=== PATIENT | male | born 1965 | race Caucasian/White ===

== ENCOUNTER 2016-10-14 12:30 | Emergency (ER) | payer OTHER ==
[2016-10-14] MEDS ORDERED: Ibuprofen TAB* 600 MG PO ONE (13:03)
--- NOTE | 2016-10-14 13:52 | ED ---
Lower Extremity - HPI Summary HPI Summary: Patient presents with right ankle pain s/p mechanical fall this afternoon. He states he tripped over his pant leg and fell twisting his right ankle and landing on his left side injuring his left ribs. Denies SOB or chest pain. He is unable to ambulate. Pain is located over the deltoid, lateral and medial ankle. No swelling or ecchymosis noted over the ankle. Denies other injuries. Denies hitting head or LOC. PMHx includes HTN and low testosterone for which he takes Clomid, but denies other health history. Pulses +2 intact bilaterally. Denies numbness or tingling in lower extremity. Denies knee pain. - History of Current Complaint Chief Complaint: EDExtremityLower Stated Complaint: RIGHT ANKLE INJURY Time Seen by Provider: 10/14/16 12:52 Hx Obtained From: Patient Mechanism Of Injury: Twisted Onset of Pain: Immediate Onset/Duration: Hours Severity Initially: Moderate Severity Currently: Moderate Pain Intensity: 7 Pain Scale Used: 0-10 Numeric Timing: Constant Location: Is Discrete @ - right ankle and left rib Character Of Pain: Sharp, Aching Associated Signs And Symptoms: Positive: Negative Aggravating Factor(s): Standing, Ambulation, Weight Bearing Alleviating Factor(s): Rest, Ice Able to Bear Weight: No - Risk Factors Gout Risk Factors: Male DVT Risk Factors: Negative Septic Arthritis Risk Factor: Negative - Allergies/Home Medications Allergies/Adverse Reactions: Allergies Allergy/AdvReac Type Severity Reaction Status Date / Time Penicillins [PCN] Allergy Anaphylatic Verified 10/14/16 12:31 Shock Shellfish Allergy Allergy Anaphylatic Verified 10/14/16 12:31 Shock PMH/Surg Hx/FS Hx/Imm Hx Previously Healthy: Yes - Immunization History Hx Pertussis Vaccination: Yes Immunizations Up to Date: Unable to Obtain/Confirm Infectious Disease History: No Infectious Disease History: Denies: Traveled Outside the [place] in Last 30 Days - Social History Occupation: Employed Full-time Lives: With Family Alcohol Use: None Hx Substance Use: No Hx Tobacco Use: No Smoking Status (MU): Never Smoked Tobacco Review of Systems Constitutional: Negative Eyes: Negative Cardiovascular: Negative Positive: Other - left sided rib pain Respiratory: Negative Positive: no symptoms reported, see HPI Positive: Arthralgia Neurological: Negative Psychological: Normal All Other Systems Reviewed And Are Negative: Yes Physical Exam Triage Information Reviewed: Yes Vital Signs On Initial Exam: Initial Vitals Temp Pulse Resp BP Pulse Ox 98.8 F 80 18 164/99 100 10/14/16 12:32 10/14/16 12:32 10/14/16 12:32 10/14/16 12:32 10/14/16 12:32 Vital Signs Reviewed: Yes Appearance: Positive: Well-Appearing, No Pain Distress, Well-Nourished Skin: Positive: Warm, Skin Color Reflects Adequate Perfusion Eyes: Positive: Normal, DHEERAJ Neck: Positive: Supple, Nontender, No Lymphadenopathy Respiratory/Lung Sounds: Positive: Clear to Auscultation, Breath Sounds Present Cardiovascular: Positive: RRR, Pulses are Symmetrical in both Upper and Lower Extremities Musculoskeletal: Positive: Normal, Strength/ROM Intact Neurological: Positive: Sensory/Motor Intact, Alert, Oriented to Person Place, Time, Speech Normal Psychiatric: Positive: Normal AVPU Assessment: Alert - Andrew Coma Scale Best Eye Response: 4 - Spontaneous Best Motor Response: 6 - Obeys Commands Best Verbal Response: 5 - Oriented Diagnostics - Vital Signs Vital Signs Temp Pulse Resp BP Pulse Ox 10/14/16 12:32 98.8 F 80 18 164/99 100 - Laboratory Lab Statement: Any lab studies that have been ordered have been reviewed, and results considered in the medical decision making process. Lower Extremity Course/Dx - Course Course Of Treatment: Patient presents s/p fall with right ankle injury and left rib pain. Based on [place] [facility] Rules, patient sent to imaging. Xray negative for fracture or other acute findings. Pain over deltoid, ATFL ligaments with no ecchymosis or swelling identified. Medial and lateral distal lower extremity without pain and x-rays show no widening of the ankle joint regarding low suspicion for Maisonneuve fx. Ankle was tanner wrapped to patient comfort to allow for immobilization for this period of time. Crutches given. Patient given orthopedic follow up in 5-7 days. Encouraged Ibuprofen 600mg three times daily with meals for pain. Return precautions given. Educated patient regarding ankle injuries and healing time and the possibility of further evaluation and imaging as orthopedist sees fit. Pulses +2 bilaterally. No findings on ankle xray or chest xray. Note given for work. Patient OK with discharge and will follow up with DR. Schmidt as needed. - Diagnoses Differential Diagnosis/HQI/PQRI: Positive: Contusion, Fracture (Closed), Sprain , Strain Provider Diagnoses: Ankle sprain Discharge - Discharge Plan Condition: Stable Disposition: HOME Patient Education Materials: Ankle Sprain (ED) Forms: *Work Release Referrals: Terese Arndt MD [Primary Care Provider] - Mi Schmidt MD [Medical Doctor] - Additional Instructions: Crutches for ambulation given. Ibuprofen 600mg three times daily with meals for pain. Follow up with orthopedic physician in 5-7 days. If numbness, tingling, decreased sensation, increased pain, temperature changes or pallor noted in toes, come back to ER immediately. Protect the area. For your comfort level, do not bear weight, pull or push until you can injury is somewhat healed. This may involve the need for immobilization or crutches for a period of time. Rest the involved area, but not too long. You may need to be off your injury for some time to allow for healing, however excessive immobilization of joints can lead to stiffness and delay healing time. Early mobilization is encouraged if it is pain-free. Ice. Not directly on the skin. Cover with a towel. Apply ice no more than 30 minutes at a time Compression: You may use and keep an tanner wrap bandage over the injury to decrease swelling. Again, this should be limited and be taken off periodically to encourage early range of motion and mobilization. Elevate: Try to elevate the injured area above the heart whenever possible. If symptoms do not improve, please follow up with Dr. Schmidt.
--- NOTE | 2016-10-14 14:02 | RAD ---
HISTORY: Fall, right ankle pain COMPARISONS: None VIEWS: 3, Frontal, lateral, and oblique views of the right ankle FINDINGS: BONE DENSITY: Normal. BONES: There is no displaced fracture. JOINTS: There is no arthropathy. ALIGNMENT: There is no dislocation. SOFT TISSUES: Unremarkable. OTHER FINDINGS: None. IMPRESSION: NO ACUTE OSSEOUS INJURY. IF SYMPTOMS PERSIST, RECOMMEND REPEAT IMAGING.
--- NOTE | 2016-10-14 14:02 | RAD ---
HISTORY: Fall, left-sided rib pain COMPARISONS: January 19, 2011 VIEWS: 2: Frontal dual-energy and lateral views of the chest. FINDINGS: CARDIOMEDIASTINAL SILHOUETTE: The cardiomediastinal silhouette is normal. ROBIN: The robin are normal. PLEURA: The costophrenic angles are sharp. No pleural abnormalities are noted. LUNG PARENCHYMA: The lungs are clear. ABDOMEN: The upper abdomen is clear. There is no subphrenic gas. BONES AND SOFT TISSUES: No bone or soft tissue abnormalities are noted. OTHER: None. IMPRESSION: NO ACTIVE CARDIOPULMONARY DISEASE.
[2016-10-14 15:42] VITALS: BP 154/87
== END 2016-10-14 15:00 | disposition home or self-care (01) ==
LOC: ED 12:30
DX: S93.401A Sprain of unspecified ligament of right ankle, initial encounter (principal); M25.571 Pain in right ankle and joints of right foot; R07.81 Pleurodynia; M25.50 Pain in unspecified joint; W19.XXXA Unspecified fall, initial encounter; Y93.9 Activity, unspecified; Y92.9 Unspecified place or not applicable
CPT/HCPCS: 71020; 99282; A9270-GY

== ENCOUNTER 2016-11-08 07:58 | Emergency (ER) | payer OTHER ==
[2016-11-08 08:03] VITALS: BP 145/95
[2016-11-08] MEDS ORDERED: Lidocaine 2% VISCOUS* 15 ML UDC PO ONE (08:33)
--- NOTE | 2016-11-08 08:42 | UC ---
yanni Paris Timothy, scribed for Candy Varghese MD on 11/08/16 at 0819 . Throat Pain/Nasal Shawn HPI - HPI Summary HPI Summary: Suhas Aparicio is a 51 yo male presenting to [facility] with 6/10 sore throat with fever of 99.9 and chills since early this morning. He states his pain increases with breathing and swallowing. Pt reports his "glands" are swollen. Pt denies ear pain, sinus pain or PND. No analgesia taken. Pt drank tea. No drooling. He states he has not been exposed to anyone with strep throat or the flu recently. His MHx includes low testosterone and high blood pressure without HTN Dx. Pt medication list reviewed this visit. - History of Current Complaint Stated Complaint: THROAT PAIN Time Seen by Provider: 11/08/16 08:28 Hx Obtained From: Patient Onset/Duration: Sudden Onset, Lasting Hours, Still Present Pain Intensity: 6 Pain Scale Used: 0-10 Numeric Associated Signs & Symptoms: Positive: Fever - Allergies/Home Medications Allergies/Adverse Reactions: Allergies Allergy/AdvReac Type Severity Reaction Status Date / Time Penicillins [PCN] Allergy Anaphylatic Verified 10/14/16 12:31 Shock Shellfish Allergy Allergy Anaphylatic Verified 10/14/16 12:31 Shock PMH/Surg Hx/FS Hx/Imm Hx Previously Healthy: Yes Other Endocrine History: low testosterone Cardiovascular History: Other Other Cardiovascular History: high BP - Surgical History Surgical History: None - Family History Known Family History: Positive: Cardiac Disease, Diabetes Negative: Hypertension - Social History Occupation: Employed Full-time Alcohol Use: Rare Substance Use Type: None Smoking Status (MU): Never Smoked Tobacco Review of Systems Constitutional: Fever Skin: Negative Eyes: Negative ENT: Sore Throat Respiratory: Negative Cardiovascular: Negative Gastrointestinal: Negative Genitourinary: Negative Motor: Negative Neurovascular: Negative Musculoskeletal: Negative Neurological: Negative Psychological: Negative All Other Systems Reviewed And Are Negative: Yes Physical Exam Triage Information Reviewed: Yes Appearance: Well-Appearing, No Pain Distress, Well-Nourished Vital Signs: Initial Vital Signs Temp 98.6 F 11/08/16 08:00 Pulse 100 11/08/16 08:00 Resp 18 11/08/16 08:00 BP 145/95 11/08/16 08:00 Pulse Ox 100 11/08/16 08:00 Vital Signs Reviewed: Yes Eye Exam: Normal Eyes: Positive: Conjunctiva Clear. Negative: Conjunctiva Inflamed, Discharge ENT Exam: Normal ENT: Positive: TMs normal. Negative: Pharynx normal - + diffuse erythema of posterior oropharynx No exudate uvula midline, Nasal drainage Neck exam: Normal Neck: Positive: Supple, Nontender, No Lymphadenopathy Respiratory Exam: Normal Respiratory: Positive: Chest non-tender, Lungs clear, Normal breath sounds, No respiratory distress Cardiovascular Exam: Normal Cardiovascular: Positive: RRR, No Murmur Abdominal Exam: Normal Abdomen Description: Positive: Nontender, No Organomegaly, Soft Musculoskeletal Exam: Normal Neurological Exam: Normal Psychological Exam: Normal Skin Exam: Normal Re-Evaluation - Re-Evaluation First Eval Re-Evaluation Time: 09:02 Change: Improved Comment: Pt pain has decreased with use of lidocaine. No drooling. reviewed with pt secretion precautions, analagesia. aware culture pending Throat Pain/Nasal Course/Dx - Course Assessment/Plan: Suhas Aparicio is a 51 yo male presenting to [facility] with 6/10 sore throat and chills with subjective fever since early this morning. His Group A Rapid Strep Test is negative. Pt was advised to remain hydrated. will trial viscous lidocaine. motrin/apap. gargle. secretion precaution. throat culture pending - pt aware - Differential Dx/Diagnosis Differential Diagnosis/HQI/PQRI: Pharyngitis, Other - strep throat Provider Diagnoses: pharyngitis Discharge - Discharge Plan Condition: Stable Disposition: HOME Prescriptions: Lidocaine 2% VISCOUS* [Xylocaine 2% Viscous*] 15 ml SWISH SPIT Q6H PRN #1 btl PRN Reason: Sore Throat Patient Education Materials: Pharyngitis (ED) Referrals: Terese Arndt MD [Primary Care Provider] - 2 Days Additional Instructions: - Stay well hydrated. Drink plenty of non-alcoholic, non-caffinated beverages. - Gargle with warm, salt water 2-3 times a day - Cold beverages may be soothing to your throat - popsicles, apple sauce, jello - These infections are spread by secretions - do NOT share eating or drinking utensils - clean items you share with other people such as cell phones, computer mouse, TV remote, computer tablets, etc. Once you start to feel better , change your toothbrush and your pillowcase. - Alternate ibuprofen (Advil, Motrin) 600mg and Tylenol every 3 hours for pain or fever. Take with food. Do NOT take for more than 4-5 days. - Your sample will be sent for additional testing. If you need antibiotics, you will receive a call from a member of our care team Please follow up with your primary care physician regarding your visit to urgent care today. Return to urgent care or the emergency department with any new symptoms or questions or concerns. The documentation as recorded by the yanni tavares Timothy accurately reflects the service I personally performed and the decisions made by me, Candy Varghese MD.
== END 2016-11-08 09:30 | disposition home or self-care (01) ==
LOC: UCEAST 07:58
DX: J02.9 Acute pharyngitis, unspecified (principal)
CPT/HCPCS: 87070; 87651; 99212; G0463